=== PATIENT | male | born 1925 | race Caucasian/White ===

== ENCOUNTER → 2016-06-07 | Day surgery (SDC) | payer OTHER ==
[2016-06-02 12:53] VITALS: Ht 167.6 cm; Wt 60.1 kg
--- NOTE | 2016-06-02 13:17 | PAT Medication Instructions ---
Service Date Jun 02, 2016. Current Home Medication List Acetaminophen (Tylenol), 1,000 MG PO Q8@02,10,18 Artificial Tear Solution (Artificial Tears), 1 DROPS OP QID PRN for EYE Ascorbic Acid (Vitamin C), 1 TAB PO QAM B-Complex Vitamins (Vitamin B Complex), 1 TAB PO QAM Cholecalciferol (Vitamin D3), 1 TAB PO QAM Docusate Sodium (Docusate Sodium), 1 CAP PO HS Omeprazole (Prilosec Otc *), 20 MG PO QAM Oxymetazoline Hcl (Afrin), 2 SPRAY NA DAILY PRN for NOSE BLEEDS Tamsulosin Hcl (Flomax *), 2 TABLETS PO QAM Medication Instructions For Your Scheduled Surgery - Instructions per surgeon: Artificial Tear Solution (Artificial Tears), 1 DROPS OP QID PRN for EYE - Hold the following medications the morning of surgery: Ascorbic Acid (Vitamin C), 1 TAB PO QAM B-Complex Vitamins (Vitamin B Complex), 1 TAB PO QAM Cholecalciferol (Vitamin D3), 1 TAB PO QAM - Take the following medications the morning of surgery with a sip of water OTHERWISE NOTHING TO EAT OR DRINK AFTER MIDNIGHT: Acetaminophen (Tylenol), 1,000 MG PO Q8@02,10,18 Omeprazole (Prilosec Otc *), 20 MG PO QAM Oxymetazoline Hcl (Afrin), 2 SPRAY NA DAILY PRN for NOSE BLEEDS Tamsulosin Hcl (Flomax *), 2 TABLETS PO QAM - Take the following medications as scheduled the night before surgery: Acetaminophen (Tylenol), 1,000 MG PO Q8@,10,18 Docusate Sodium (Docusate Sodium), 1 CAP PO HS If you have any questions please call us at [phone] or [phone] or [phone]
[~2016-06-07] VITALS: Ht 167.6 cm; Wt 60.1 kg
[~2016-06-07] MED LIST: ACET-1256 PO; ACET-1311 PO; ARTISOL12 OP; ASCO10003 PO; B-COTAB18 PO; CHOL1000 PO; CHOL1CHW10 PO; CYCLOPENTOLATE HCL 1% OP SOLN PER DROP CHARGE OPL SCH; DOCU100C31 PO; FLM4 PO; LACTATED RINGER'S 1000ML 500 ML IV SCH; LIDOCAINE 4% OP SOLN DROP CHARGE OPL SCH; MOXIFLOXACIN OPH SOLN PER DROP CHARGE OPL SCH; OXYM0.056; PHENYLEPHRINE HCL 2.5% OP SOLN PER DROP CHARGE OPL SCH; PRLSR20 PO; PROPARACAINE 0.5% OP SOLN PER DROP CHARGE OPL SCH; TAMS0.4C38 PO; TROPICAMIDE 1% OP SOLN PER DROP CHARGE OPL SCH
== END | disposition home or self-care (01) ==
LOC: EDSTATUS 07:45 → C.PAT 11:08
PROVIDERS: ATTEND Ophthalmology
DX: H26.9 Unspecified cataract (principal)

== ENCOUNTER 2016-07-29 22:37 | Emergency (ER) | payer OTHER ==
[~2016-07-29 22:37] MED LIST changes: -CYCLOPENTOLATE HCL 1% OP SOLN PER DROP CHARGE OPL SCH; -LACTATED RINGER'S 1000ML 500 ML IV SCH; -LIDOCAINE 4% OP SOLN DROP CHARGE OPL SCH; -MOXIFLOXACIN OPH SOLN PER DROP CHARGE OPL SCH; -PHENYLEPHRINE HCL 2.5% OP SOLN PER DROP CHARGE OPL SCH; -PROPARACAINE 0.5% OP SOLN PER DROP CHARGE OPL SCH; -TROPICAMIDE 1% OP SOLN PER DROP CHARGE OPL SCH
[2016-07-29 23:00] VITALS: TEMP 36.5
[2016-07-29] MEDS ORDERED: SODIUM CHLORIDE 0.9% 1000ML 250 ML IV STA (23:44)
[2016-07-29] MEDS ORDERED: SODIUM CHLORIDE 0.9% 1000ML 1,000 ML IV STA (23:44)
[2016-07-30 00:18] LABS: BASO % 0.3 %; BASO ABS # 0.02 K/uL (0-0.2); COMPLETE YES; EOS % 1.6 %; HEMATOCRIT 37.4 % (42-52); IG% 0.1 %; LYMPH % 38.1 %; LYMPH ABS # 2.57 K/uL (1.2-3.4); MEAN CELL VOLUME 95.7 fL (80-100); MEAN CORPUSCULAR HGB CONC 33.4 g/dl (32-36); MEAN PLATELET VOLUME 8.8 fL (7.4-10.4); MONO % 9.8 %; NEUT % 50.1 %; PLATELET COUNT 230 K/uL (130-400); RED BLOOD COUNT 3.91 M/uL (4.7-6.1); WHITE BLOOD COUNT 6.75 K/uL (4.8-10.8)
[2016-07-30 00:36] LABS: ALT/SGPT 14 U/L (12-78); AST/SGOT 11 U/L (15-37); BLOOD UREA NITROGEN 21 mg/dl (7-18); BUN/CREATININE RATIO 17.6 (10-20); CALCIUM 8.7 mg/dl (8.5-10.1); CARBON DIOXIDE 33 mmol/L (21-32); CHLORIDE 105 mmol/L (98-107); GLUCOSE 90 mg/dl (70-99); POTASSIUM 3.8 mmol/L (3.5-5.1); SODIUM 144 mmol/L (136-145)
[2016-07-30 00:41] LABS: ALKALINE PHOSPHATASE 53 U/L (45-117)
--- NOTE | 2016-07-30 00:47 | EMERGENCY ROOM VISIT NOTE ---
History Report prepared by Myrtle: Marixa Rojas Under the Supervision of: Dr. Kiol Hsu M.D. First contact with patient: 23:34 Chief Complaint: SWELLING TO EXTREMITY Stated Complaint: RT HAND & SHOULDER PAIN History of Present Illness The patient is a 89 year old male who presents to the Emergency Room with complaints of constant swelling to his right hand beginning this evening after a fall. The patient has dementia. Per senior living staff. This HPI is limited due to the patient not responding. Source of History: senior living notes History Limited By: dementia, other (non repsonsive) Position: hand (right) Quality: other (swelling) Timing: constant Review of Systems Unable to give a review of systems secondary to dementia/altered mental status Past Medical & Surgical Medical Problems: (1) Dementia Old medical records were reviewed. Nurse's notes were reviewed and I agree with. 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 DO NOT RESUSCITATE Family History Not pertinent due to age Social History Smoking Status: Unknown if Ever Smoked Housing Status: senior living Occupation Status: retired Current/Historical Medications Scheduled Acetaminophen (Tylenol), 1,000 MG PO Q8@02,10,18 Ascorbic Acid (Vitamin C), 1 TAB PO QAM Ascorbic Acid (Vitamin C), 1 TAB PO QAM B-Complex Vitamins (Vitamin B Complex), 1 TAB PO DAILY B-Complex Vitamins (Vitamin B Complex), 1 TAB PO QAM Cholecalciferol (Vitamin D3), 1 TAB PO QAM Cholecalciferol (Vitamin D3), 1 TAB PO QAM Docusate Sodium (Docusate Sodium), 1 CAP PO QPM Docusate Sodium (Docusate Sodium), 1 CAP PO HS Omeprazole (Prilosec Otc *), 20 MG PO QAM Omeprazole (Prilosec), 20 MG PO DAILY Tamsulosin Hcl (Flomax *), 2 TABLETS PO QAM Tamsulosin Hcl (Flomax), 0.4 MG PO QAM Scheduled PRN Acetaminophen (Tylenol), 2 TAB PO Q4 PRN for Pain Artificial Tear Solution (Artificial Tears), 1 DROPS OP QID PRN for EYE Oxymetazoline Hcl (Afrin), 2 SPRAY NA DAILY PRN for NOSE BLEEDS Allergies Coded Allergies: Sulindac (Unverified Allergy, Intermediate, UNKNOWN, 06/02/16) Penicillins (Verified Allergy, Unknown, UNSURE, 05/30/16) Physical Exam Vital Signs Date Time Temp Pulse Resp B/P Pulse Ox O2 Delivery O2 Flow Rate FiO2 07/30/16 01:02 162/81 07/30/16 01:00 61 20 07/30/16 00:45 53 15 07/30/16 00:30 59 19 07/30/16 00:15 66 19 07/30/16 00:01 143/80 07/30/16 00:00 60 22 07/29/16 23:45 55 18 07/29/16 23:30 45 18 94 07/29/16 23:30 53 16 131/75 94 Room Air 07/29/16 23:08 57 07/29/16 23:00 36.5 68 16 136/77 98 Room Air Physical Exam General: Older male, minimally responsive, non verbal, whispers, does open eyes. HEENT: Normal cephalic atraumatic. Pupils are equal round and reactive to light. Extraocular movements are intact. Oropharynx is pink with moist mucous membranes. No swelling of the mouth lips or tongue. Neck: Supple with a midline trachea. No meningeal signs or stiffness, no JVD or bruits. No Stridor. Chest: Clear to auscultation bilaterally. No wheezes or rhonchi. No increased work of breathing. Heart: regular rate and rhythm. Abdomen: Soft nontender, nondistended without rebound guarding or rigidity. Extremities: Bruising and mild swelling to right proximal forearm, swelling to hand, good distal pulse. No cyanosis clubbing or edema. No calf tenderness or assymetry Spine/Back. Non tender to palpation. No CVA tenderness Skin: Good turgor without rashes. Neurologic exam: Cranial nerves two through 12 are intact. Motor and sensation are intact and symmetrical throughout. Medical Decision & Procedures ER Provider Diagnostic Interpretation: Radiology results as stated below per my review and radiologist interpretation: Chest X-Ray: No infiltrates. Enlarged cardiac silhouette, aortic knob, decreased inspiration, medial sternal appears wider compared to 05/25/13 however patient did not take a large breath and maybe technique. CT HEAD: No ICH, mass effect or edema. No evidence of acute cortical stroke. Periventricular small vessel ischemic change. Diffuse parenchymal atrophy. No midline shift. Dilated ventricles are most likely due to central parenchymal atrophy or alternatveily normal pressure hydrocephalus in the right clinical setting. 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 Visualized sinuses and mastoid air cells are clear. No acute calvarial fracture. Radiologist: Johny Romero MD. Study read at 01:17. US of Upper Extremity: No evidence of DVT to right upper extremity. There is a 5 cm fluid collection near the proximal humerus. Laboratory Results 07/30/16 00:07 Red Blood Count 3.91, Mean Corpuscular Volume 95.7, Mean Corpuscular Hemoglobin 32.0, Mean Corpuscular Hemoglobin Concent 33.4, Mean Platelet Volume 8.8, Neutrophils (%) (Auto) 50.1, Lymphocytes (%) (Auto) 38.1, Monocytes (%) (Auto) 9.8, Eosinophils (%) (Auto) 1.6, Basophils (%) (Auto) 0.3, Neutrophils # (Auto) 3.38, Lymphocytes # (Auto) 2.57, Monocytes # (Auto) 0.66, Eosinophils # (Auto) 0.11, Basophils # (Auto) 0.02 07/30/16 00:07 Test 07/30/16 00:07 07/30/16 00:11 07/30/16 01:00 White Blood Count 6.75 K/uL (4.8-10.8) Red Blood Count 3.91 M/uL (4.7-6.1) Hemoglobin 12.5 g/dL (14.0-18.0) Hematocrit 37.4 % (42-52) Mean Corpuscular Volume 95.7 fL (80-100) Mean Corpuscular Hemoglobin 32.0 pg (25-34) Mean Corpuscular Hemoglobin Concent 33.4 g/dl (32-36) Platelet Count 230 K/uL (130-400) Mean Platelet Volume 8.8 fL (7.4-10.4) Neutrophils (%) (Auto) 50.1 % Lymphocytes (%) (Auto) 38.1 % Monocytes (%) (Auto) 9.8 % Eosinophils (%) (Auto) 1.6 % Basophils (%) (Auto) 0.3 % Neutrophils # (Auto) 3.38 K/uL (1.4-6.5) Lymphocytes # (Auto) 2.57 K/uL (1.2-3.4) Monocytes # (Auto) 0.66 K/uL (0.11-0.59) Eosinophils # (Auto) 0.11 K/uL (0-0.5) Basophils # (Auto) 0.02 K/uL (0-0.2) RDW Standard Deviation 55.7 fL (36.4-46.3) RDW Coefficient of Variation 16.0 % (11.5-14.5) Immature Granulocyte % (Auto) 0.1 % Immature Granulocyte # (Auto) 0.01 K/uL (0.00-0.02) Anion Gap 6.0 mmol/L (3-11) Estimated GFR () 61.8 Estimated GFR (Non- 53.3 BUN/Creatinine Ratio 17.6 (10-20) Calcium Level 8.7 mg/dl (8.5-10.1) Total Bilirubin 0.3 mg/dl (0.2-1) Direct Bilirubin < 0.1 mg/dl (0-0.2) Aspartate Amino Transf (AST/SGOT) 11 U/L (15-37) Alanine Aminotransferase (ALT/SGPT) 14 U/L (12-78) Alkaline Phosphatase 53 U/L (45-117) Total Creatine Kinase 22 U/L (39-308) Creatine Kinase MB < 0.5 ng/ml (0.5-3.6) Creatine Kinase MB Ratio (0-3.0) Total Protein 6.3 gm/dl (6.4-8.2) Albumin 3.1 gm/dl (3.4-5.0) Lipase 148 U/L (73-393) Bedside Troponin I 0.000 ng/ml (0-0.045) Urine Color YELLOW Urine Appearance CLEAR (CLEAR) Urine pH 5.0 (4.5-7.5) Urine Specific [place] 1.040 (1.000-1.030) Urine Protein NEG (NEG) Urine Glucose (UA) NEG (NEG) Urine Ketones NEG (NEG) Urine Occult Blood NEG (NEG) Urine Nitrite NEG (NEG) Urine Bilirubin NEG (NEG) Urine Urobilinogen NEG (NEG) Urine Leukocyte Esterase NEG (NEG) Laboratory studies as stated above per my review. Medications Administered Medications (Trade) Dose Ordered Sig/Karina Route Start Time Stop Time Status Last Admin Dose Admin Sodium Chloride (Nss 1000ml) 250 ml @ 999 mls/hr Q16M STAT IV 07/29/16 23:44 07/29/16 23:59 DC 07/29/16 01:30 999 MLS/HR ECG Indication: altered mental status Rate (beats per minute): 60 Rhythm: normal sinus Findings: 1st degree AV block, RBBB (incomplete) Comparison ECG Date: rate decreased from November 13, 2011 ED Course 2335: Past medical records reviewed. The patient was evaluated in room A12, and a complete history and physical examination were performed. 2344: Sodium Chloride 1,000 ml @ 100 mls/hr IV, Sodium Chloride 250 ml @ 999 mls /hr IV. 0208: Patient is more awake. He denies any complaints. 0219: The patient is much more awake and reactive. Right shoulder is not red and freely mobile. 0230: Upon reevaluation, the patient is hemodynamically stable. I discussed the results and treatment plan with the patient. He verbalized agreement of the treatment plan. The patient was discharged home. Medical Decision Differentials include, but are not limited to; DVT, intracranial process, anemia , infection, electrolyte or metabolic abnormality. This patient comes in as described above. He apparently has some swelling in his right arm. He is a dementia unit. He may have also been a little more weak , there is really not much history given when they was sent over. On his right hand, it is minimally swelling. He has some bruising on his forearm and proximal arm. He has normal neurovascular status. EKG does not suggest acute coronary syndrome. Chest x-ray does not suggest pneumonia or CHF. Multiple blood testing was obtained including CAT scan and ultrasound of his arm. Urinalysis was also ordered. He was reassessed frequently. He was much more awake and alert he denies any complaints his shoulders freely mobile not red or warm. He is no evidence compartment syndrome. He has no acute electrolyte or metabolic abnormalities. He has nothing to just and acute cardiac event or arrhythmia. Ultrasound shows no DVT there is a fluid collection which may be a hematoma. He has nothing to clinically suggest that he has abscess. I will discharge him back to the senior living and they would observe this return if: Worsening of symptoms, fever or chills, numbness or weakness, any new problems or concerns. Impression Primary Impression: Swelling of right upper extremity Additional Impressions: Weakness Dementia Hematoma Scribe Attestation The scribe's documentation has been prepared under my direction and personally reviewed by me in its entirety. I confirm that the note above accurately reflects all work, treatment, procedures, and medical decision making performed by me. Departure Information Dispostion Home / Self-Care Referrals Anny Mcwilliams C.R.N.P. (PCP) Forms HOME CARE DOCUMENTATION FORM, IMPORTANT VISIT INFORMATION, WORK / SCHOOL INSTRUCTIONS Patient Instructions My [facility] Additional Instructions Rest. Return if: Increasing pain, worsening symptoms, not acting like self, fever chills, any new problems or concerns Follow-up with your doctor Sunday for recheck Problem Qualifiers
[2016-07-30 01:11] LABS: URINE APPEARANCE CLEAR (CLEAR); URINE BILIRUBIN NEG (NEG); URINE COLOR YELLOW; URINE NITRITE NEG (NEG); UROBILINOGEN NEG (NEG)
[2016-07-30 01:13] LABS: MANUAL MICROSCOPIC REQUIRED? NO; REVIEW REQ? NO
[2016-07-30 03:02] VITALS: BP 152/93
[2016-07-30 03:07] VITALS: PULSE 60; O2SAT 97
--- NOTE | 2016-07-30 06:12 | DIAGNOSTIC IMAGING REPORT ---
CHEST ONE VIEW PORTABLE CLINICAL HISTORY: CHEST PAIN dyspnea COMPARISON STUDY: 05/27/2016 FINDINGS: Tortuous thoracic aorta. Chronic right hilar fullness. Lungs are considered clear. Diaphragms smooth. IMPRESSION: Chronic change. No acute process. Electronically signed by: Lamont Lucas M.D. 07/30/2016 6:11 AM Dictated Date/Time: 07/30/2016 6:11 AM
--- NOTE | 2016-07-30 06:31 | DIAGNOSTIC IMAGING REPORT ---
HEAD CT NONCONTRAST CT DOSE: 614.27 mGy.cm HISTORY: Mental status change weakness TECHNIQUE: Multiaxial CT images of the head were performed without the use of intravenous contrast. Comparison: None. Findings: The paranasal sinuses and mastoid air cells are clear. The calvarium and skull base are intact. The ventricles and sulci are within normal limits. There is no mass, hematoma, midline shift, or acute infarct. Age-related atrophy and chronic small vessel change Impression: No acute intracranial abnormality. Age-related atrophy and chronic small vessel change Electronically signed by: Lamont Lucas M.D. 07/30/2016 6:29 AM Dictated Date/Time: 07/30/2016 6:29 AM
--- NOTE | 2016-07-30 06:32 | DIAGNOSTIC IMAGING REPORT ---
VENOUS DOPPLER RIGHT ARM UPPER EXTREMITY VENOUS DOPPLER HISTORY: Pain. Edema. eval for DVT Right COMPARISON STUDY: None. FINDINGS: The internal jugular vein is patent. There is normal flow within the subclavian vein. There is normal flow and compressibility within the left axillary, basilic, brachial, radial, ulnar, and visualized cephalic veins. Complex fluid collection anterior to the right humerus most likely representing hematoma IMPRESSION: No DVT within the upper extremity. 5 cm complex fluid collection anterior to the right humerus. This may represent posttraumatic hematoma depending on history Electronically signed by: Lamont Lucas M.D. 07/30/2016 6:31 AM Dictated Date/Time: 07/30/2016 6:30 AM
== END 2016-07-30 03:31 | disposition home or self-care (01) ==
LOC: EDBD 22:37 → C.EDA 22:41
DX: R22.31 Localized swelling, mass and lump, right upper limb (principal); F03.90 Unspecified dementia, unspecified severity, without behavioral disturbance, psychotic disturbance, mood disturbance, and anxiety; R53.1 Weakness; T14.8 Other injury of unspecified body region; X58.XXXA Exposure to other specified factors, initial encounter